=== PATIENT | female | born 1970 | race Caucasian/White ===

== ENCOUNTER 2018-08-09 17:40 | Inpatient (IN) | payer OTHER ==
[~2018-08-09] VITALS: Ht 160 cm; Wt 49.9 kg
--- NOTE | 2018-08-09 18:30 | NUR ---
Preadmission Note: Pt seen in intake office. Pt appears to be very anxious, nervous, and afraid. Pt is crying during assessment and had to be redirected multiple times to answer questions. Pt was able to be redirected after letting her go outside to get fresh air. Pt states she is here for ETOH Withdrawal: drinking 1-2 bottles of wine for the past year. Pt also reports drinking vodka from time to time. Pt last drank 4 glasses of champagne at 1600. Pt has a hx of taking unspecified amount of [place] for a hx of sternum fx from 2 months ago. Pt stated she last took [place] 2 weeks ago. Pt denies hx of withdrawal-induced sz but did have a hx of hyponatremia-induced seizure. Pt denies hx of delirium or cardiac complications. Pt does have a hx of multiple blackouts. Pt denies hx of SI/SA and denies being on a psychiatric hold before. Pt stated she is here to be sober because she doesn't want to be "this person anymore". She wants to be sober for her daughter and has the necessary motivation to complete treatment. Explained policies and procedures to pt. Pt verbalized understanding. Will admit to [facility] for admission.
[2018-08-09] MEDS ORDERED: LORAZEPAM 1 MG TABLET PO ONE (20:45)
--- NOTE | 2018-08-09 20:45 | NUR ---
MD COMMUNICATION Pt noted to be anxious, agitated, restless, emotionally volatile, irritable, impatient, pacing the halls and crying. CIWA: 16. Dr. Nichols notified with new order for Ativan 2 mg x1 now. Order entered, Dr. Nichols without computer access at this time.
--- NOTE | 2018-08-09 21:00 | NUR ---
Admission note Patient arrived at the unit at 1924. Patient is a 47 year old female who presents to [facility] for medically supervised withdrawal from ETOH. No known allergies. Patient requests for full code and on regular diet. Body check done . Bruise noted on right upper thigh. Patient reports PMH of Anxiety, Depression and sternum fracture 2 months ago. She doesnt take medication for her Anxiety and Depression. She takes Trazadone for sleep. Patient had one time seizure 8 years ago due to hyponatremia. No 5150 hold. No suicide attempt. Patient does have history of multiple blackouts. Patient works in [employer] and lives with her ex- and daughter. She was since 2004. She has significant other at this time whom she states is her support system. When asked why shes seeking treatment. She explained I dont want to be this person anymore. Patient states she relapsed in 2014 when her father and when she met her previous significant other who drinks. He told her that she does not have drinking problem and able to convince her to drink again. The barriers for her getting or staying sober was being with him and the of her father. The consequences of her drinking was her daughter who wouldnt speak to her and unspecified legal consequences . Patient states she will surround herself with good people, be honest, be humble, go to AA and to go to treatment center after this. Substance history Alcohol (white wine or Vodka)-started drinking at age 16. Patient drinks 750-1500 ml daily for a year. Last drink was 600 ml of champagne on 08/09/18 at 1600 Patient has history of taking unspecified amount of [place] for a history of sternum fracture 2 months ago. Patient stated she last took [place] 2 weeks ago. Treatment history [facility]-90 days-2004 Her Typical withdrawal symptoms are anxiety, afraid and nervous. Her PCP is Dr. Delfin Lai and Psychiatrist Dr. Hough whom she got prescription for Trazadone. Patient smokes occasionally . During interview, patient was very anxious, restless, pacing around the room, verbalizing that she wants to leave and that she wants to talk to her significant other, crying, fearful, difficulty concentrating, bilateral hand tremors, irritable and agitated. CIWA 16. No SI/HI. Patient brought home medication. Continues redirection provided and positive encouragement given. Safety measures in place. Call light in reach. Will continue to monitor. Addendum: 08/10/18 at 0734 by BABITA RILEY LVN Clarification of Substance History Patient drinks either one: Alcohol(Vodka)-started drinking at age 16. She drinks 750-1500 ml of Vodka daily for a year. Last drink was 600 ml of champagne Alcohol(White wine)-started drinking at age 16. She drinks 750-1500 ml of white wine daily for a year. Last drink was 600 ml of champagne. Addendum: 08/11/18 at 0653 by BABITA RILEY LVN Final Clarification of Substance History Patient states she drinks white wine 750-1500 ml with 45 ml of Vodka daily for a year.
--- NOTE | 2018-08-09 21:10 | NUR ---
One time Ativan administration Patient was very anxious, restless, pacing around the room, verbalizing that she wants to leave and that she wants to talk to her significant other, crying, fearful, difficulty concentrating, irritable and agitated. Patient noted with bilateral hand tremors. CIWA 16.
[2018-08-09 21:14] LABS: *URINE HCG, QUAL NEGATIVE (NEGATIVE)
[2018-08-09] MEDS ORDERED: MIRALAX 17 GM POWD.PACK PO PRN (21:15)
[2018-08-09] MEDS ORDERED: HYDROXYZINE PAMOATE 25 MG CAPSULE PO PRN (21:15)
[2018-08-09] MEDS ORDERED: LOPERAMIDE HCL 2 MG CAPSULE PO PRN ×2 (21:15)
[2018-08-09] MEDS ORDERED: CLONIDINE HCL 0.1 MG TABLET PO PRN (21:15)
[2018-08-09] MEDS ORDERED: MAGNESIUM HYDROXIDE 30 ML LIQUID UDC PO PRN (21:15)
[2018-08-09] MEDS ORDERED: THIAMINE HCL 200 MG/2 ML VIAL IM ONE (21:15)
[2018-08-09] MEDS ORDERED: LORAZEPAM 2 MG/1 ML VIAL IM PRN (21:15)
[2018-08-09] MEDS ORDERED: MAG HYDROX/AL HYDROX/SIMETH 30 ML LIQUID UDC PO PRN (21:15)
[2018-08-09] MEDS ORDERED: diphenhydrAMINE 50 MG CAPSULE PO PRN (21:15)
[2018-08-09] MEDS ORDERED: LORAZEPAM 1 MG TABLET PO PRN (21:15)
[2018-08-09] MEDS ORDERED: ONDANSETRON ODT 4 MG TAB.RAPDIS SL PRN (21:15)
--- NOTE | 2018-08-09 22:10 | NUR ---
One time Ativan re-assessment Patient is less anxious, restless but able to redirect, CIWA 11.
[2018-08-09] MEDS: MULTIVITAMINS,THERAPEUTIC TABLET PO SCH (22:12)
[2018-08-09] MEDS: FOLIC ACID 1 MG TABLET PO SCH (22:12)
[2018-08-10] VITALS: BP 129/89
--- NOTE | 2018-08-10 | NUR ---
CIWA deferred Patient lying in bed with eyes closed. Respiration even and unlabored. Will continue to monitor.
[2018-08-10 00:40] LABS: *AMPHETAMINE, URINE NEGATIVE (NEGATIVE); *BARBITURATE, URINE NEGATIVE (NEGATIVE); *CANNABINOID, URINE NEGATIVE (NEGATIVE); *COCCAINE, URINE NEGATIVE (NEGATIVE); *OPIATE, URINE NEGATIVE (NEGATIVE); *PHENCYCLIDINE SCREEN,URINE NEGATIVE (NEGATIVE)
[2018-08-10] MEDS ORDERED: ESZO3TAB27 PO (01:39)
[2018-08-10] MEDS ORDERED: TRAZ150T75 PO (01:39)
[2018-08-10] MEDS ORDERED: OMEP40CA37 PO (01:39)
--- NOTE | 2018-08-10 01:40 | NUR ---
CIWA assessment Patient came up at the nurses station , anxious, restless, panic feeling and c/o muscle aches. CIWA 10.
[2018-08-10] MEDS: IBUPROFEN 600 MG TABLET PO PRN ×2 (01:48→20:06)
[2018-08-10] MEDS: LORAZEPAM 1 MG TABLET PO PRN ×2 (01:48→06:17)
--- NOTE | 2018-08-10 01:48 | NUR ---
PRN Ativan and Motrin administration Patient came up at the nurses station , anxious, restless, panic feeling and c/o muscle aches. CIWA 10.
--- NOTE | 2018-08-10 02:48 | NUR ---
PRN Ativan and Motrin re-assessment Patient lying in bed with eyes closed. Respiration even and unlabored. Will continue to monitor. CIWA deferred
[2018-08-10 04:00] VITALS: BP 127/85
--- NOTE | 2018-08-10 04:00 | NUR ---
CIWA deferred Patient lying in bed with eyes closed. Respiration even and unlabored. Will continue to monitor.
--- NOTE | 2018-08-10 06:15 | NUR ---
CIWA assessment Patient woke up anxious, restless, irritable, sweating and bilateral hand tremors CIWA 12.
--- NOTE | 2018-08-10 06:17 | NUR ---
PRN Ativan administration Patient woke up anxious, restless, irritable, sweating and bilateral hand tremors CIWA 12.
--- NOTE | 2018-08-10 07:17 | NUR ---
PRN Ativan re-assessment Patient lying in bed with eyes closed. Respiration even and unlabored. Will continue to monitor. CIWA deferred
--- NOTE | 2018-08-10 07:23 | NUR ---
MAYANKVA deferred Patient lying in bed with eyes closed. Respiration even and unlabored. Will continue to monitor. Addendum: 08/10/18 at 0723 by BABITA RILEY LVN Error: charted incorrect time
--- NOTE | 2018-08-10 07:26 | NUR ---
End of shift note Patient slept 6 hours. Fluid intake 1,000 . Voided x 1. No BM. Patient newly admitted for ETOH withdrawal. Patient was anxious and restless most of the night. One time Ativan given upon admission . CIWA 16. AT 0148 and 0617 , PRN Ativan given for anxiety and restlessness. She slept intermittently. Redirection and positive encouragement given. Encouraged fluids. Last CIWA 12. Endorsed to next shift. Patient refused blood draw.
[2018-08-10 08:00] VITALS: BP 137/90
[2018-08-10 08:01] LABS: BASOPHILS % (AUTO) 0.9 % (0.0-2.0); EOSINOPHILS # (AUTO) 0.1 K/uL (0.0-0.7); EOSINOPHILS % (AUTO) 1.3 % (0.0-7.0); HEMOGLOBIN 12.3 g/dL (10.9-14.3); LYMPHOCYTES # (AUTO) 1.1 K/uL (20.0-40.0); LYMPHOCYTES % (AUTO) 25.5 % (20.5-51.5); MEAN CORPUSCULAR HEMOGLOBIN 34.8 uug (24.7-32.8); MEAN CORPUSCULAR HGB CONC 34 g/dL (32.3-35.6); MEAN CORPUSCULAR VOLUME 101.6 fL (75.5-95.3); MONOCYTES # (AUTO) 0.5 K/uL (2.0-10.0); MONOCYTES % (AUTO) 11.9 % (0.0-11.0); NEUTROPHILS # (AUTO) 2.7 K/uL (1.8-8.9); NEUTROPHILS % (AUTO) 60.4 % (38.5-71.5); PLATELET COUNT (AUTO) 381 K/uL (179-408); RED BLOOD CELL COUNT(AUTO) 3.54 MIL/uL (3.63-4.92); WHITE BLOOD COUNT (AUTO) 4.5 K/uL (3.8-11.8)
[2018-08-10 08:12] LABS: ETHANOL < 3 MG/DL (0-0)
--- NOTE | 2018-08-10 08:17 | NUR ---
Start Of Shift / CIWA 11 Pt is a 47 y/o F admitted last night 08/09/18 for medically supervised ETOH withdrawal. Pt will begin a 5 day ativan taper this am. Pt has a disheveled appearance, pt is agitated, states she feels less anxious than last night. Pt is easily irritable, restless, gross tremors noted, states she wants to make a phone call to her significant other and it would make her feel better about being here. Encouraged pt to increase fluids as tolerated to facilitate in detox. Educated pt with s/s to report, med regimen and plan of care. Last CIWA 12 @0615 and slept 6 hrs. Pt has been given ativan 2 mg, ativan 1 mg x2, motrin, PRNS last shit. Side rails upx2 and padded, bed in lowest position. Call light is within reach. Safety measures in place. Will continue to monitor.
[2018-08-10 08:22] LABS: ALANINE AMINOTRANSFERASE 60 U/L (14-59); ALKALINE PHOSPHATASE 128 U/L (50-136); AMYLASE 40 U/L (25-115); ASPARTATE AMINOTRANSFERASE 69 U/L (15-37); BILIRUBIN,TOTAL 0.7 mg/dL (0.2-1.0); CARBON DIOXIDE 23 mmol/L (21-32); CHLORIDE 101 mmol/L (98-107); CREATININE 0.6 mg/dL (0.6-1.3); GLUCOSE 83 mg/dL (74-106); LIPASE 159 U/L (73-393); MAGNESIUM 1.8 mg/dL (1.8-2.4); POTASSIUM 3.9 mmol/L (3.5-5.1); TOTAL PROTEIN, SERUM 7.3 g/dL (6.4-8.2); UREA NITROGEN, BLOOD 4 mg/dL (7-18)
[2018-08-10] MEDS: MULTIVITAMINS,THERAPEUTIC TABLET PO SCH (08:59)
[2018-08-10] MEDS: THIAMINE HCL 100 MG TABLET PO SCH (08:59)
[2018-08-10] MEDS: FOLIC ACID 1 MG TABLET PO SCH (08:59)
[2018-08-10] MEDS: LORAZEPAM 1 MG TABLET PO SCH ×4 (08:59→20:06)
[2018-08-10] MEDS ORDERED: TUBERCULIN,PURIF.PROT.DERIV. 5 TU/0.1 ML TEST ID ONE (09:00)
[2018-08-10] MEDS ORDERED: 5 DAY TAPER OF LORAZEPAM -SERENITY PROTOCOL PO PRN (09:00)
[2018-08-10 10:14] LABS: THYROID STIMULATING HORMONE 1.116 mIU/mL (0.358-3.740)
[2018-08-10 12:00] VITALS: BP 132/90
--- NOTE | 2018-08-10 12:00 | NUR ---
CIWA 14 BP: 132/90, HR: 120. Pt is agitated, anxious and easily irritable, restless, increased emotional amplitude, gross tremors noted. Verbalized she feels anxious, weak. Pt still wants to make a phone call and is becoming more restless and aggravated. Ativan will be administered. Safety measures in place.
[2018-08-10] MEDS ORDERED: Medication Not On Formulary EA (Omeprazole 40 MG) PO SCH (13:30)
[2018-08-10] MEDS: PANTOPRAZOLE SODIUM 40 MG TABLET.DR PO SCH (13:35)
[2018-08-10] MEDS: ACETAMINOPHEN 325 MG TABLET PO PRN (15:02)
--- NOTE | 2018-08-10 15:02 | NUR ---
PRN Tylenol 650 mg po prn given for pain of the chest wall r/t recent accident. Will monitor and reassess.
[2018-08-10 16:30] VITALS: BP 118/80
--- NOTE | 2018-08-10 16:30 | NUR ---
CIWA 15 Pt has elevated emotional amplitude, weakness, headache, is agitated, anxious, easily irritable, restless, was in tears talking about family, gross tremors noted. Ativan will be administered and tylenol was given. Safety measures in place. HR: 102
--- NOTE | 2018-08-10 19:30 | NUR ---
End of Shift Pt has been isolative in room, exhibiting elevated emotional amplitude. Pt stated she wanted to leave but was able to be redirected and agreed to stay after a phone call was able to be made. Tylenol 650 mg po prn was given and effective for headache. Last CIWA 15 @1600. Safety measures in place.
--- NOTE | 2018-08-10 19:30 | NUR ---
Start of shift note Received report from day shift nurse . Patient is a 47 year old female admitted for ETOH withdrawal. Patient is on 1st day of her 5 day Ativan taper. Patient was given PRN Tylenol . Last CIWA 15. Patient alert and oriented x .4 . Patient presents with flat affect, depressed mood, sad, worried, emotional volatility, anxious, restless, panic feeling, difficulty concentrating, poor appetite , agitated and generalized body aches. Safety measures in place. Call light in reach. Will continue to monitor.
[2018-08-10 20:00] VITALS: BP 129/91
--- NOTE | 2018-08-10 20:00 | NUR ---
MAYANKWA assessment Patient , worried, emotional volatility, anxious, restless, difficulty concentrating, poor appetite , agitated and generalized body aches. Addendum: 08/11/18 at 0310 by BABITA RILEY LVN SUZETTE 14
--- NOTE | 2018-08-10 20:06 | NUR ---
PRN Motrin administration Patient c/o muscle aches. Will monitor for effectiveness
--- NOTE | 2018-08-10 21:06 | NUR ---
PRN Motrin re-assessment Patient states Motrin is helpful and effective.
[2018-08-10] MEDS: TRAZODONE 50 MG TABLET PO PRN (21:38)
--- NOTE | 2018-08-10 21:38 | NUR ---
PRN Trazadone administration Patient requests for sleep aid. Will monitor for effectiveness
--- NOTE | 2018-08-10 22:38 | NUR ---
PRN Trazadone re-assessment Patient lying in bed with eyes closed. Respiration even and unlabored.Will continue to monitor
[2018-08-11] VITALS: BP 130/72
--- NOTE | 2018-08-11 | NUR ---
CIWA deferred Patient lying in bed with eyes closed. Respiration even and unlabored.VS refused. Will continue to monitor
[2018-08-11 04:00] VITALS: BP 128/89
--- NOTE | 2018-08-11 04:00 | NUR ---
CIWA deferred Patient lying in bed with eyes closed. Respiration even and unlabored.Will continue to monitor
[2018-08-11] MEDS: PANTOPRAZOLE SODIUM 40 MG TABLET.DR PO SCH (06:56)
--- NOTE | 2018-08-11 07:23 | NUR ---
End of shift note Patient slept 7 hours. Fluid intake 796 ml. Voided x 2. No BM. Patient continue on Ativan taper, tolerated well and no adverse reaction . Patient presented with flat affect,, depressed mood, sad, worried, emotional volatility, anxious, restless, difficulty concentrating, poor appetite , agitated and generalized body aches. Redirection provided. Patient was given PRN Motrin and Trazadone. Safety measures in place. Call light in reach. Will continue to monitor. Last CI 14.
--- NOTE | 2018-08-11 07:45 | NUR ---
Start Of Shift / CIWA 14 Pt is a 47 y/o F admitted on 08/09/18 for medically supervised ETOH withdrawal. Today will be the second day of a 5 day ativan taper; pt is tolerating well. Pt has a disheveled appearance, has an anxious and depressive mood, is agitated, irritable, restless, presents gross/fine tremors, c/o pain in the chest wall r/t recent accident. Encouraged pt to increase fluids as tolerated to facilitate in detox. Educated pt with s/s to report, med regimen and plan of care. Last CI, slept 6 hrs. Pt has been given trazodone, motrin, PRNS last shift. Side rails upx2 and padded, bed in lowest position. Call light is within reach. Safety measures in place. Will continue to monitor.
[2018-08-11 08:00] VITALS: BP 128/82
[2018-08-11 08:06] LABS: HEPATITIS B SURFACE AG Negative (Negative)
[2018-08-11] MEDS: THIAMINE HCL 100 MG TABLET PO SCH (08:27)
[2018-08-11] MEDS: MULTIVITAMINS,THERAPEUTIC TABLET PO SCH (08:27)
[2018-08-11] MEDS: FOLIC ACID 1 MG TABLET PO SCH (08:27)
[2018-08-11] MEDS ORDERED: LORAZEPAM 1 MG TABLET PO SCH (09:00)
[2018-08-11] MEDS: ACETAMINOPHEN 325 MG TABLET PO PRN (10:48)
--- NOTE | 2018-08-11 10:48 | NUR ---
PRN Tylenol 650 mg po prn given for pain in the chest wall r/t a recent accident. Will monitor and reassess.
[2018-08-11 12:30] VITALS: BP 146/99
--- NOTE | 2018-08-11 12:30 | NUR ---
Reassessment Pt reports med was effective. Safety measures in place. Will continue to monitor.
--- NOTE | 2018-08-11 12:30 | NUR ---
CIWA 15 Pt continues to have an anxious and depressive mood, has been more active, in and out of her room. Pt is anxious and agitated, easily irritable, restless, avoidant eye contact, has gross/fine tremors, c/o pain in the chest wall r/t recent accident. Tylenol was administered. Safety measures in place. Will continue to monitor.
[2018-08-11] MEDS: LORAZEPAM 1 MG TABLET PO SCH (16:23)
[2018-08-11 16:30] VITALS: BP 141/90
--- NOTE | 2018-08-11 16:30 | NUR ---
CIWA 14 Pt is anxious and agitated, easily irritable, restless, avoidant eye contact, has gross/fine tremors. Ativan 2 mg po dose given and tolerated well. Safety measures in place. Will continue to monitor.
--- NOTE | 2018-08-11 19:08 | NUR ---
End Of Shift Ativan taper has been adjusted and will end tomorrow. Pt continues to presents agitation, restlessness, anxiety, and tremors noted. Tylenol 650 mg po prn given for chest wall pain 5/10 and effective. Last CIWA 14. Pt ate 75/75/50% of meals. Fluid intake of 3700 ml, voidedx2, bmx1. Safety measures in place. Endorsement will be given to scene shifter nurse.
[2018-08-11 20:00] VITALS: BP 137/87
--- NOTE | 2018-08-11 20:00 | NUR ---
Start of shift Patient is a 47 year old female admitted on 08/09/2018. Patient is here at [facility] for medically supervised withdrawal from ETOH. Patient is on a 3 day Ativan taper. Patients last CIWA is 14 at 1600. Patient has a history of seizures due to hyponatremia, patient denies it is from ETOH withdrawal. Patient is in seizure and fall precautions. Upon rounds patient was noted in bed watching television. Patient seem anxious, agitated and with some tremors. Respirations are even and unlabored. Safety precautions in place, bed locked in lowest position, side rails up x2. Will continue to monitor.
--- NOTE | 2018-08-11 20:10 | NUR ---
CIWA Assessment CIWA is 12. Patient is presenting with withdrawal symptoms: tremors, nausea, anxiety and agitation. Respirations even and unlabored. Safety measures in place. Will continue to monitor.
[2018-08-11] MEDS: TRAZODONE 50 MG TABLET PO PRN (21:57)
--- NOTE | 2018-08-11 21:57 | NUR ---
PRN Trazodone 100mg Patient complaining unable to fall asleep, and requested PRN Trazodone. Medication given and tolerated well, will reassess within one hour. Safety measures in place. Will continue to monitor.
--- NOTE | 2018-08-11 22:57 | NUR ---
PRN Trazodone 100mg Reassessment Patient noted to be in bed with eyes closed, medication seemed to be effective. No signs and symptoms of adverse reaction. Safety measures in place. Will continue to monitor.
--- NOTE | 2018-08-12 04:14 | NUR ---
V/S refused and CIWA assessment deferred for sleep. Respirations even and unlabored. Will continue to monitor.
[2018-08-12] MEDS: PANTOPRAZOLE SODIUM 40 MG TABLET.DR PO SCH (06:46)
--- NOTE | 2018-08-12 07:22 | NUR ---
End of shift Patient is a 47 year old female admitted on 08/09/2018. Patient is here at [facility] for medically supervised withdrawal from ETOH. Patient is on a 3 day Ativan taper. Patients last CIWA is 12 at 2000. Patient is in seizure and fall precautions. Patient slept for 10 hours and total intake 1,591 ml. Patient voided x2, and had no bowel movement. Patient received PRN Trazodone 100 mg at 2157, patient tolerated well and medication was effective. Safety precautions in place, bed locked in lowest position, side rails up x2. Will endorse to day shift.
[2018-08-12 08:00] VITALS: BP 107/65
--- NOTE | 2018-08-12 08:00 | NUR ---
Start of Shift Notes/CIWA Assessment: Received patient in her room. Alert and oriented x 4. Verbally responsive. Denies S/I or H/I noted. No AV hallucinations noted. Noted with gross tremors, complains of intermittent perspiration, and increased emotional amplitude. She was very tearful upon doing rounds and verbalizes "I finally feel normal." Noted with CIWA 16. Patient verbalizes increased anxiety due to the discharge process and this day being the last day of her detox meds. Reassurance and redirection provided. Educated patient on her current plan of care for the day and her medication regimen. Encouraged oral fluid intake and encouraged group participation to learn new skills to prevent relapse. Per night report, patient was given Trazodone during the night. Slept for 9 hours. Last CIWA 12. All needs met and attended. Will continue to monitor.
[2018-08-12] MEDS: FOLIC ACID 1 MG TABLET PO SCH (08:43)
[2018-08-12] MEDS: THIAMINE HCL 100 MG TABLET PO SCH (08:43)
[2018-08-12] MEDS: MULTIVITAMINS,THERAPEUTIC TABLET PO SCH (08:43)
[2018-08-12] MEDS: LORAZEPAM 1 MG TABLET PO SCH (08:43)
[2018-08-12] MEDS ORDERED: LORAZEPAM 1 MG TABLET PO SCH (09:00)
[2018-08-12] MEDS: ACETAMINOPHEN 325 MG TABLET PO PRN (11:21)
--- NOTE | 2018-08-12 11:21 | NUR ---
Tylenol 650 mg PO given: Patient complained of 6/10 generalized aching related to s/s of withdrawal. Non-pharmacological interventions provided but ineffective. Medicated patient with Tylenol 650 mg PO as ordered. Will monitor for effectiveness.
[2018-08-12 12:00] VITALS: BP 123/78
--- NOTE | 2018-08-12 12:20 | NUR ---
CIWA Assessment: CIWA 14, patient continues to present with generalized aching, anxiety, agitation, gross tremors, intermittent perspiration, worried facial expression and generalized discomfort. Will continue to monitor. Offer support and offer PRNs.
--- NOTE | 2018-08-12 12:21 | NUR ---
Re-assessment: Tylenol Patient verbalizes that her PL is now a 3/10. PRN Tylenol was effective.
--- NOTE | 2018-08-12 14:17 | NUR ---
Therapist prompted client to attend group therapy.
[2018-08-12] MEDS ORDERED: TRAZ-213 PO (14:45)
[2018-08-12] MEDS ORDERED: PANT40TA2 PO (14:45)
[2018-08-12 16:00] VITALS: BP 133/88
--- NOTE | 2018-08-12 16:00 | NUR ---
CIWA Assessment: CIWA 11, patient continues to present with gross tremors, intermittent perspiration, anxiety, agitation, generalized body pain and discomfort. Offered PRNs. Patient completed taper. All needs met and attended.
--- NOTE | 2018-08-12 19:12 | NUR ---
End of Shift Notes: Patient completed her 3-day Ativan as ordered to manage symptoms related to ETOH withdrawal. No adverse reactions noted. Patient has dc plans tomorrow to [facility]. VS monitored closely. No significant abnormalities noted. Withdrawal symptoms were closely monitored. Initial CIWA 16, patient presented with anxiety, agitation, depression, difficulty concentrating, increased emotional amplitude, fatigue, facial flushing, increased startle response, intermittent perspiration and generalized discomfort. Medicated patient with Tylenol 650 mg PO at 1121 for generalized pain. Last CIWA 11. Patient verbalizes that Ativan has been effective in reducing her withdrawal symptoms. Patient was encouraged to participate in group and activities due to episodes of self isolation and requires redirection and reassurance during the day. Appetite good. All needs met and attended. Will continue to monitor closely.
--- NOTE | 2018-08-12 19:36 | NUR ---
Start Of Shift Patient is a 47 yr old female who was admitted to [facility] on 08/09/18 for a medically supervised withdrawal from ETOH, she has completed a modified 3 day Ativan taper and is to be discharged in the AM. PRN Tylenol was given on day shift. Currently she is in the REC room watching TV with her peers. Continue to follow MD plan of care and offer support as needed.
[2018-08-12 20:00] VITALS: BP 134/85
--- NOTE | 2018-08-12 20:00 | NUR ---
CIWA 11 patient presents with emotional volatility, she is weepy, sad and anxious. Vistaril 25mg PO given
[2018-08-12] MEDS: TRAZODONE 50 MG TABLET PO PRN (20:09)
--- NOTE | 2018-08-12 20:09 | NUR ---
PRN Trazodone 100mg PO given per request for sleep
--- NOTE | 2018-08-12 20:09 | NUR ---
PRN Vistaril 25mg PO given for increased anxiety, patient is weepy and brooding on her past actions with her family, sat with patient and let her express her feelings , will reassess
--- NOTE | 2018-08-12 21:09 | NUR ---
PRN Reassess Patient is lying in bed relaxed, states Vistaril was effective, anxiety decreased
--- NOTE | 2018-08-12 21:10 | NUR ---
PRN Reassess Patient states she is drowsy and will fall asleep soon.
--- NOTE | 2018-08-13 | NUR ---
CIWA Deferred, patient unable to answer due to being drowsy, VS taken, call light within reach
[2018-08-13 00:58] VITALS: BP 128/79
--- NOTE | 2018-08-13 04:00 | NUR ---
CIWA/VITALS CIWA Deferred due to sleep and VS refused by patient, RR 15, breathing even, call light within reach
[2018-08-13] MEDS: PANTOPRAZOLE SODIUM 40 MG TABLET.DR PO SCH (06:38)
--- NOTE | 2018-08-13 06:50 | NUR ---
End Of Shift: Patient is a 47 yr old female who was admitted to [facility] on 08/09/18 for a medically supervised withdrawal from ETOH, she has completed a 3 day Ativan taper and is to be discharged this AM to [facility]. On PM shift she displayed increased anxiety , fear and sadness, she was tearful and feels remorse for what has happened to bring her where she is now but claims she is happy that once again she is back on the road to sobriety. PRN Vistaril and Trazodone were given on PM shift, she had a fluid intake of 500ML, 1Voids and 0BM, her last CIWA was 11 @ 8pm and she slept for 8 hours. Continue to follow MD plan for DC and offer support and encouragement. Endorsed to day shift nurse.
--- NOTE | 2018-08-13 07:30 | NUR ---
Start of Shift Corporate Relations Manager received report on 47 year old female admitted to [facility] on 08/09/18 for medical management of ETOH withdrawals. Pt endorses NKA, full code and regular diet. Denies chronic PMH, with a history of 1 seizure. PPH of anxiety and depression. Pt has completed an Ativan taper in preparation of todays discharge. Last CI 11, per NOC report. Corporate Relations Manager encounters pt in pts room. Pt is A/O x4 and able to make needs known. Pt with a linear thought process and clear speech pattern. Pt is anxious and restless, perseverating on phone calls. Pt denies any other symptoms. Bed in low position with wheels locked and side rails up x2. Will continue to monitor, support and encourage according to plan of care.
[2018-08-13 08:00] VITALS: BP 120/93
--- NOTE | 2018-08-13 08:00 | NUR ---
CIWA 8 Pt with fine tremors, anxiety and restless. Will continue to monitor, support and encourage according to plan of care.
[2018-08-13] MEDS: THIAMINE HCL 100 MG TABLET PO SCH (08:39)
[2018-08-13] MEDS: MULTIVITAMINS,THERAPEUTIC TABLET PO SCH (08:39)
[2018-08-13] MEDS: FOLIC ACID 1 MG TABLET PO SCH (08:39)
[2018-08-13] MEDS: ACETAMINOPHEN 325 MG TABLET PO PRN (08:50)
[2018-08-13] MEDS ORDERED: LORAZEPAM 1 MG TABLET PO SCH (09:00)
--- NOTE | 2018-08-13 09:34 | NUR ---
Discharge Assessment Pt is A/O x4 and able to make needs known. Pt with clear thought and speech pattern. Perseverating on phone calls. Pt is anxious and restless, hyper-active. Pt endorses anxiety, but denies any other associated withdrawal symptoms. Pt's last CIWA 8. Pt has completed an Ativan taper.Pt with fine tremors. Pt denies SI/HI or A/VH. Pt is optimistic and hopeful for the future. Adobe Developer educated pt on discharge medications, educational material and discharge packet. Pt educated on name, route, timing, dose and indication of all prescribed medications. Pt provided with prescriptions. Pt denies any further comments, questions, or concerns.
[2018-08-14] MEDS ORDERED: LORAZEPAM 1 MG TABLET PO SCH (09:00)
== END 2018-08-13 09:34 | disposition other institution (70) | DRG 895 ==
LOC: SRC 17:40
PROVIDERS: ADMIT Family Medicine Addiction Medicine; ATTEND Family Medicine Addiction Medicine
PROC: HZ2ZZZZ Detoxification Services for Substance Abuse Treatment (ICD-10-PCS; principal; 2018-08-09)
PROC: HZ31ZZZ Individual Counseling for Substance Abuse Treatment, Behavioral (ICD-10-PCS; 2018-08-11)
DX: F10.230 Alcohol dependence with withdrawal, uncomplicated (principal); E87.1 Hypo-osmolality and hyponatremia; Y90.0 Blood alcohol level of less than 20 mg/100 ml; F41.1 Generalized anxiety disorder; F32.9 Major depressive disorder, single episode, unspecified; G47.00 Insomnia, unspecified; Z87.81 Personal history of (healed) traumatic fracture
CPT/HCPCS: 36415; 80307; 83690; 83735; 84443; 84703; 85025; 86580; 86592; 86705; 86803; 87340; 87806; G0480